=== PATIENT | male | born 1990 | race Caucasian/White ===

== ENCOUNTER → 2024-08-04 14:08 | Outpatient (CLI) | payer OTHER, SELFPAY | PROVIDERS: Visit Provider Nurse Practitioner Family | DX: R35.0 Frequency of micturition (principal); Z72.53 High risk bisexual behavior | CPT/HCPCS: 87086; 87210 ==

== ENCOUNTER → 2024-08-07 12:37 | Outpatient (CLI) | payer OTHER, SELFPAY ==
[2024-08-07 14:34] LABS: Urine N gonorrhoeae NOT DETECTED
[2024-08-07 14:43] LABS: Urine Chlamydia NOT DETECTED
[2024-08-07 15:16] LABS: Hepatitis B Surface Antigen NEGATIVE s/c (NEGATIVE)
[2024-08-07 15:34] LABS: HIV 1 & 2 Ab/Ag 4th Gen Combo NEGATIVE (NEGATIVE); Hep C Virus Ab w/Reflex Quant NEGATIVE s/c (NEGATIVE)
== END ==
PROVIDERS: Referring Provider Nurse Practitioner Family; Visit Provider Nurse Practitioner Family
DX: Z72.53 High risk bisexual behavior (principal); Z72.51 High risk heterosexual behavior
CPT/HCPCS: 36415; 86592; 86803; 87340; 87389; 87491; 87591

== ENCOUNTER 2024-11-08 19:02 | Emergency (ER) | payer OTHER, SELFPAY ==
[2024-11-08 19:17] VITALS: BP 124/82; PULSE 91; RESP 17; TEMP 36.6; O2SAT 100; BMI 28.1
--- NOTE | 2024-11-08 19:31 | ED.GENADULT ---
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 Has had recurrent bladder infections with issues with recurrent kidney stones in the past. States that this does not have the severe sharp stabbing pain he has associated with kidney stones in the past. No fevers or chills. No significant diarrhea vomiting or chest pain Related Data Home Medications ?Medication ?Instructions ?Recorded ?Confirmed albuterol sulfate 90 mcg/actuation 2 puff inhalation Q6H PRN 08/04/24 11/08/24 aerosol inhaler bronchospasm dextroamphetamine-amphetamine 10 10 mg PO DAILY 08/04/24 11/08/24 mg tablet (Adderall) epinephrine 0.3 mg/0.3 mL 0.3 mg IM ONCE 08/04/24 11/08/24 injection, auto-injector fluoxetine 20 mg capsule (Prozac) 20 mg PO DAILY 08/04/24 11/08/24 gabapentin 300 mg capsule 300 mg PO .four times a day 08/04/24 11/08/24 levocetirizine 5 mg tablet (Xyzal) 5 mg PO DAILY 08/04/24 11/08/24 lisinopril 10 mg tablet 10 mg PO DAILY 08/04/24 11/08/24 testosterone cypionate 200 mg/mL 200 mg IM QWEEK 08/04/24 11/08/24 intramuscular oil zolpidem 6.25 mg tablet,extended 6.25 mg PO BEDTIME 08/04/24 11/08/24 release,multiphase (Ambien CR) Previous Rx's ?Medication ?Instructions ?Recorded sulfamethoxazole 800 1 tab PO BID #14 tabs 11/08/24 mg-trimethoprim 160 mg tablet (Bactrim DS) Allergies Allergy/AdvReac Type Severity Reaction Status Date / Time red dye Allergy Mild Hives Verified 11/08/24 19:18 Review of Systems Review of Systems Narrative: Pertinent positive and negative findings as per HPI Patient History Smoking Status: Never smoker Exam Initial Vital Signs Initial Vital Signs: Vital Signs Temperature 98 F 11/08/24 19:17 Pulse Rate 91 H 11/08/24 19:17 Respiratory Rate 17 11/08/24 19:17 Blood Pressure 124/82 11/08/24 19:17 Pulse Oximetry 100 11/08/24 19:17 Oxygen Delivery Method Room Air 11/08/24 19:17 General: Healthy appearing, in no acute distress. Able to give a complete and coherent history. Well-nourished well-developed HEENT: Moist mucous membranes, normal sclera with reactive pupils, Respiratory: Lungs are clear to auscultation, no wheezing no rales no rhonchi. Full and symmetrical air movement Cardiac: Regular rate and rhythm no murmurs no bruits Abdomen: Soft, nontender, no rebound or guarding, no flank pain Skin: Warm and dry, no rashes Neurologic: Grossly neurologically intact with no obvious asymmetries or abnormalities Extremities: No trauma, well perfused Psych: Cooperative, appropriate insight and affect Course Orders Ordered: ED Orders 11/08/24 19:50 Chlamydia Gonorrhea PCR -URINE Stat Complete Blood Count AUTO DIFF Stat Comprehensive Metabolic Panel Stat Test Urine Stat Urinalysis and Microscopic Stat Urine Culture Stat Ceftriaxone Sodium 2,000 mg/ (Sodium Chloride) 100 mls @ 200 mls/hr IV NOW ONE Stop: 11/08/24 22:17 Discontinued Medications Sodium Chloride (Normal Saline 0.9%) 1,000 mls @ 1,000 mls/hr IV BOLUS ONE Stop: 11/08/24 20:28 Last Infusion: 11/08/24 21:26 Dose: Infused Documented By: Admin: 11/08/24 20:02 Dose: 1,000 mls/hr Documented By: ANGELA Ketorolac Tromethamine (Ketorolac 30 Mg/Ml Vial) 15 mg IV NOW ONE Stop: 11/08/24 19:30 Last Admin: 11/08/24 20:03 Dose: 15 mg Documented By: ANGELA Ondansetron HCl (Ondansetron 4 Mg/2 Ml Inj) 4 mg IV NOW ONE Stop: 11/08/24 19:30 Last Admin: 11/08/24 20:03 Dose: 4 mg Documented By: ANGELA Vital Signs Vital signs: Vital Signs - 8 hr 11/08/24 19:17 Temperature 98 F Pulse Rate 91 H Respiratory Rate 17 Blood Pressure 124/82 Pulse Oximetry 100 Oxygen Delivery Method Room Air Medical Decision Making Lab Data 11/08/24 19:50 11/08/24 19:50 Labs: Lab Results 11/08/24 Range/Units 19:50 WBC 7.3 (4.5-11.0) X10^3/uL RBC 4.76 (4.0-5.2) X10^6/uL Hgb 14.6 (12.0-16.0) g/dL Hct 42.2 (36-46) % MCV 88.7 (80-100) fL MCH 30.6 (26-34) PG MCHC 34.6 (30-36) % RDW 13.6 (11.6-14.8) % Plt Count 268 (150-400) X10^3/uL Neut % (Auto) 49.6 L (50-75) % Lymph % (Auto) 33.2 (25-40) % Evans % (Auto) 12.1 (3-14) % Eos % (Auto) 4.6 H (2-4) % Baso % (Auto) 0.5 (0-2) % Neut # (Auto) 3600 (6991-4123) /uL Lymph # (Auto) 2400 (3296-6571) /uL Evans # (Auto) 900 (0-900) /uL Eos # (Auto) 300 (0-450) /uL Baso # (Auto) 0 (0-100) /uL Sodium 134 L (137-145) mmol/L Potassium 3.9 (3.4-5.1) mmol/L Chloride 98 (98-107) mmol/L Carbon Dioxide 30 (22-32) mmol/L BUN 19 H (7-17) mg/dL Creatinine 1.19 H (0.52-1.04) mg/dL Estimated GFR > 60 (>60) mL/min BUN/Creatinine Ratio 16.0 (6-22) Glucose 112 H (70-99) mg/dL Calcium 9.3 (8.4-10.2) mg/dL Total Bilirubin 0.4 (0.2-1.3) mg/dL AST 44 H (14-36) IU/L ALT 40 H (<35) IU/L Alkaline Phosphatase 105 (38-126) U/L Total Protein 7.9 (6.3-8.2) g/dL Albumin 4.5 (3.5-5.0) g/dL Globulin 3.4 (1.7-4.1) g/dL Albumin/Globulin Ratio 1.3 (1.0-2.8) Urine Color Yellow Urine Appearance Sl cloudy Urine pH 6.5 (4.5-8.0) Ur Specific [place] 1.010 (1.000-1.035) Urine Protein Negative (Negative) Urine Glucose (UA) Negative (Negative) g/dL Urine Ketones Negative (NEGATIVE) Urine Occult Blood Negative (Negative) Urine Nitrate Negative (Negative) Urine Bilirubin Negative (NEGATIVE) Urine Urobilinogen 1.0 (0.2) E.U./dL Ur Leukocyte Esterase 2+ H (NEGATIVE) Urine RBC 1-5/hpf (0-5/HPF) Urine WBC 10-30/hpf H (0-5/HPF) Ur Squamous Epith Cells 1-5 /hpf (0-5/HPF) Ur Transition Epith Cell 0-1/hpf (0-5/HPF) Urine Bacteria Many (>30) H (None) Urine Mucus 1+ H (Negative) Ur Culture Indicated? Specimen cultured Vol Urine Centrifuged 10ml (spun) Urine Test Negative (Negative) MDM Narrative Medical decision making narrative: CC: Increasing pelvic pain, some back/complaints of left flank pain Complicating co-morbidities: Prior kidney stones, prior urinary tract infections, on testosterone identifies as he him, still has uterus and ovaries Data collected from: patient Medical records reviewed: No records are available for review Differential considered: UTI, pyelonephritis, obstructing kidney stone, doubt pelvic inflammatory disease in the absence of any vaginal discharge, with more than 6 years of testosterone do not suspect that the ovaries or large enough for torsion but remains within the possibilities, appendicitis, diverticulitis Exam documented above, pertinent findings include: Appears slightly uncomfortable, suprapubic tenderness is mild, no reproducible flank pain but does complain of low back pain [id number] Lab Test results independently reviewed as above. Pertinent findings: CBC is reassuring, no significant leukocytosis Chemistries are notable for a creatinine at 1.19. Minimal elevation of AST and ALT at 44 and 40 respectively. Urine shows leukocyte esterase, white cells many bacteria has been cultured. No prior urine samples to base antibiotic choice upon Urine test is negative Treatments: Saline, Toradol, Zofran and 2 g of ceftriaxone Discussion: 34-year-old individual with increasing dysuria frequency low back pain history of recurrent urinary tract infections and complications with kidney stones. Does not believe that this is a kidney stone today. Urinalysis does not have any red cells in it. There was no evidence of systemic infection or sepsis. Urine does appear to be infected. On re-evaluation abdominal pain and flank pain significantly improved after Toradol. No evidence of acute surgical abdomen. He is given 2 g of IV ceftriaxone and will ask him to complete 7 days of Bactrim for his urinary tract infection. We will ask him to return if symptoms do not improve. There was no indication for additional imaging or hospitalization at this time. He is safe for discharge Discharge Plan Departure Patient Disposition: Home Clinical Impression: Urinary tract infection Instructions: DI for Urinary Tract Infection (UTI) Activity Restrictions/Additional Instructions: Thank you for coming into Your urine definitely looks like you have a bladder infection. There are no significant red blood cells to suggest that you might have a complicating kidney stone as well. You responded nicely to fluids, nausea medicine and Toradol. I have also given you a dose of ceftriaxone which is an antibiotic last for 24 hours. 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 Using 400 mg of ibuprofen (2 [id number] pills) and 1 Tylenol every 6 hours can be very helpful in controlling pain. If you find that you are getting worse or develop new symptoms you do need to return to the ER. Prescriptions: New sulfamethoxazole-trimethoprim [Bactrim DS] 800-160 mg tablet 1 tab PO BID Qty: 14 0RF No Action dextroamphetamine-amphetamine [Adderall] 10 mg tablet 10 mg PO DAILY lisinopril 10 mg tablet 10 mg PO DAILY gabapentin 300 mg capsule 300 mg PO .four times a day epinephrine 0.3 mg/0.3 mL auto-injector 0.3 mg IM ONCE Rx Instructions: as a single dose; may repeat once albuterol sulfate 90 mcg/actuation HFA aerosol inhaler 2 puff inhalation Q6H PRN (Reason: bronchospasm) fluoxetine [Prozac] 20 mg capsule 20 mg PO DAILY zolpidem [Ambien CR] 6.25 mg tablet,ext release multiphase 6.25 mg PO BEDTIME levocetirizine [Xyzal] 5 mg tablet 5 mg PO DAILY testosterone cypionate 200 mg/mL oil 200 mg IM QWEEK Stand Alone Forms: Patient Portal/API
[2024-11-08] MEDS: SODIUM CHLORIDE 0.9% 1,000 ML 1000 ML IV (20:02)
[2024-11-08] MEDS: KETOROLAC 30 MG/ML VIAL 15 MG IV (20:03)
[2024-11-08] MEDS: ONDANSETRON 4 MG/2 ML INJ IV (20:03)
[2024-11-08 21:22] LABS: Bilirubin Urine UA NEGATIVE (NEGATIVE); Color Urine UA YELLOW; Glucose Urine UA NEGATIVE (Negative); Ketones Urine UA NEGATIVE (NEGATIVE); Leukocyte Esterase Urine UA 2+ (NEGATIVE); Nitrite Urine UA NEGATIVE (Negative); Occult Blood Urine UA NEGATIVE (Negative); Protein Urine UA NEGATIVE (Negative); Specific Gravity Urine UA 1.010 (1.000-1.035); Urobilinogen Urine UA 1.0 E.U./dL (0.2)
[2024-11-08 21:23] LABS: pH Urine UA 6.5 (4.5-8.0)
[2024-11-08 21:24] LABS: Appearance Urine UA SL CLOUDY
[2024-11-08 21:25] LABS: Add Manual Diff / Slide Review NO; Alanine Aminotransferase 40 IU/L (<35); Albumin 4.5 g/dL (3.5-5.0); Albumin Globulin Ratio 1.3 (1.0-2.8); Alkaline Phosphatase 105 U/L (38-126); Blood Urea Nitrogen 19 mg/dL (7-17); Calcium 9.3 mg/dL (8.4-10.2); Carbon Dioxide 30 mmol/L (22-32); Chloride 98 mmol/L (98-107); Estimated Glomerular Filt Rate > 60 mL/min (>60); Globulin 3.4 g/dL (1.7-4.1); Glucose 112 mg/dL (70-99); HEMOLYSIS < 15 (0-50); Hematocrit 42.2 % (36-46); Hemoglobin 14.6 g/dL (12.0-16.0); Lymphocytes Absolute Auto 2400 /uL (1100-4500); Mean Corpuscular HGB Conc 34.6 % (30-36); Mean Corpuscular Hemoglobin 30.6 PG (26-34); Mean Corpuscular Volume 88.7 fL (80-100); Platelet Count 268 X10^3/uL (150-400); Potassium 3.9 mmol/L (3.4-5.1); Sodium 134 mmol/L (137-145); Total Protein 7.9 g/dL (6.3-8.2)
[2024-11-08 21:30] LABS: Culture Indicated Urine Specimen Cultured
[2024-11-08] MEDS: cefTRIAXone 2,000 MG in SODIUM CHLORIDE 0.9% 100 ML 200 MG IV (22:39)
[2024-11-08 22:46] LABS: Urine N gonorrhoeae NOT DETECTED
[2024-11-08 22:50] LABS: Urine Chlamydia NOT DETECTED
[2024-11-08 23:17] VITALS: BP 121/76; PULSE 70; RESP 15; O2SAT 99
== END 2024-11-08 23:19 | disposition home or self-care (01) ==
PROVIDERS: Emergency Provider Emergency Medicine
DX: N39.0 Urinary tract infection, site not specified (principal)
CPT/HCPCS: 36415; 80053; 81001; 81025; 85025; 87077; 87086; 87147; 87491; 87591; 96361; 96365; 96375; 99284; J0696; J1885; J2405

== ENCOUNTER → 2025-01-10 14:37 | Outpatient (CLI) | payer OTHER, SELFPAY ==
[2025-01-10 16:49] LABS: Urine N gonorrhoeae NOT DETECTED
[2025-01-10 16:50] LABS: Urine Chlamydia NOT DETECTED
== END ==
PROVIDERS: Visit Provider Chiropractor
DX: R30.0 Dysuria (principal); Z72.51 High risk heterosexual behavior
CPT/HCPCS: 87086; 87210; 87491; 87591